=== PATIENT | male | born 1970 | race Caucasian/White ===

== ENCOUNTER 2017-09-03 19:53 | Emergency (ER) | payer MEDICAID ==
[~2017-09-03] VITALS: Ht 180.3 cm; Wt 68.8 kg
[2017-09-03 19:55] VITALS: BP 180/95
[2017-09-03] MEDS ORDERED: ONDANSETRON ODT 4 MG PO ONE (20:00)
[2017-09-03] MEDS ORDERED: SODIUM CHLORIDE 0.9% 1,000ML IVBOLUS ONE (20:00)
[2017-09-03] MEDS ORDERED: SODIUM CHLORIDE FLUSH 10ML SYR IVF ONE (20:00)
[2017-09-03 21:29] LABS: PH, VENOUS 7.536 pH (7.320-7.420)
[2017-09-03 21:38] LABS: BASOPHILS # (AUTO) 0.04 x10^3/uL (0-0.1); BASOPHILS % (AUTO) 0 % (0-1); EOSINOPHILS # (AUTO) 0.04 x10^3/uL (0-0.4); EOSINOPHILS % (AUTO) 0 % (1-7); LYMPHOCYTES # (AUTO) 1.78 x10^3/uL (1-3.4); LYMPHOCYTES % (AUTO) 17 % (22-44); MD NO; MEAN CORPUSCULAR HEMOGLOBIN 30.1 pg (27.5-34.5); MEAN CORPUSCULAR HGB CONC 33.9 g/dL (33.2-36.2); MEAN CORPUSCULAR VOLUME 88.8 fL (81-97); MEAN PLATELET VOLUME 6.6 fL (7.4-10.4); MONOCYTES # (AUTO) 0.55 x10^3/uL (0.2-0.8); MONOCYTES % (AUTO) 5 % (2-9); NEUTROPHILS # (AUTO) 7.86 x10^3/uL (1.8-6.8); NEUTROPHILS % (AUTO) 77 % (42-75); PLATELET COUNT 403 x10^3/uL (130-400); RED BLOOD COUNT 5.82 x10^6/uL (4.38-5.82); RED CELL DISTRIBUTION WIDTH 13.1 % (9.4-14.8)
[2017-09-03 21:41] LABS: ALANINE AMINOTRANSFERASE 21 U/L (12-78); ANION GAP 10 mmol/L (5-15); CALCIUM 9.5 mg/dL (8.5-10.1); CHLORIDE 90 mmol/L (98-107); CREATININE 1.01 mg/dL (0.7-1.3)
[2017-09-03 21:44] LABS: ALKALINE PHOSPHATASE 80 U/L (45-117); BILIRUBIN,TOTAL 1.2 mg/dL (0.2-1.0); TOTAL PROTEIN 7.8 g/dL (6.4-8.2)
[2017-09-03 21:52] LABS: ACETONE, SERUM Small (20mg/dL) mg/dL (Negative)
[2017-09-03] MEDS ORDERED: METOCLOPRAMIDE 5 MG/ML, 2ML ONE (21:58)
[2017-09-03] MEDS ORDERED: DICYCLOMINE 10 MG/ML, 2ML ONE (21:59)
[2017-09-03] MEDS ORDERED: DICYCLOMINE 10 MG/ML, 2ML IM ONE (22:00)
[2017-09-03] MEDS ORDERED: METOCLOPRAMIDE 5 MG/ML, 2ML IVPush ONE (22:00)
[2017-09-03 22:24] LABS: MICROSCOPIC INDICATED
[2017-09-03] MEDS ORDERED: MORPHINE SULFATE 4 MG/ML, 1ML IVPush PRN (22:30)
[2017-09-03 22:35] LABS: CULTURE INDICATED? YES
[2017-09-03] MEDS ORDERED: MORPHINE SULFATE 4 MG/ML, 1ML ONE (22:38)
== END 2017-09-03 23:34 | disposition home or self-care (01) ==
LOC: ED 22:18
DX: K31.84 Gastroparesis (principal); E10.43 Type 1 diabetes mellitus with diabetic autonomic (poly)neuropathy; E86.0 Dehydration; I10 Essential (primary) hypertension; G89.29 Other chronic pain; R10.84 Generalized abdominal pain; Z90.49 Acquired absence of other specified parts of digestive tract
CPT/HCPCS: 36415; 80053; 81001; 82010; 82803; 83690; 85025; 87086; 96361; 96372; 96374; 99284; J0500; J2765; J7030; Q0162; 82962